=== PATIENT | male | born 1985 | race Caucasian/White ===

== ENCOUNTER 2017-05-19 10:31 | Emergency (ER) | payer OTHER ==
[2017-05-19 10:48] VITALS: BP 99/56
--- NOTE | 2017-05-19 11:59 | UC ---
[facility] Jennifer, scribed for Alec Aquino MD on 05/19/17 at 1133 . Skin Complaint HPI - HPI Summary HPI Summary: The patient is a 31 year old male who presents with redness on the left forearm for the last 1-2 days. The redness is located where he burned himself three days ago while using a kitchen zambrano. Pt additionally complains of bilateral pedal edema that began over one month ago when his dose of medication increased. He had labs done on 05/04/2017 when the edema began. Pt denies fever , chills, and shortness of breath. He is a resident at [facility]. - History of Current Complaint Chief Complaint: UCSkin Time Seen by Provider: 05/19/17 11:10 Stated Complaint: RED AREA ON ARM SWELLING IN KNEES AND FEET Hx Obtained From: Patient Onset/Duration: Sudden Onset, Lasting Days - 1-2 days, Still Present Skin Exposure Onset/Duration: Days Ago - 3 days Timing: Constant Onset Severity: Mild Current Severity: Mild Pain Intensity: 4 Pain Scale Used: 0-10 Numeric Location: Other - Left forearm Character: Exposure to Heat Intermittent - Burned himself on kitchen pain Aggravating Factor(s): Nothing Alleviating Factor(s): Nothing Associated Signs & Symptoms: Negative: Difficulty Breathing, Fever, Chills - Allergy/Home Medications Allergies/Adverse Reactions: Allergies Allergy/AdvReac Type Severity Reaction Status Date / Time shellfish Allergy anaph Uncoded 05/19/17 10:39 Home Medications: Home Medications Ambien Cr 10 mg PO DAILY 05/19/17 [History Confirmed 05/19/17] Divalproex Sodium [Depakote] 1,000 mg PO IN AM AND AT BEDTIME 05/19/17 [History Confirmed 05/19/17] Gabapentin CAP(*) [Neurontin 400 mg CAP(*)] 800 mg PO TID 05/19/17 [History Confirmed 05/19/17] Suboxone 8 mg-2 mg Sl Film 8 mg PO BID 05/19/17 [History Confirmed 05/19/17] Zyprexa 5 MG TAB* 5 mg PO DAILY 05/19/17 [History Confirmed 05/19/17] cloNIDine 0.1 MG PATCH* [Qghnsmwx-Fsv-5 0.1 mg Patch*] 0.1 mg PO BID 05/19/17 [ History Confirmed 05/19/17] Review of Systems Constitutional: Negative - Fever, chills Skin: Other - Redness on left forearm Respiratory: Negative - Shortness of breath Musculoskeletal: Edema - Bilateral All Other Systems Reviewed And Are Negative: Yes PMH/Surg Hx/FS Hx/Imm Hx Previously Healthy: Yes - NEG: HTN - Surgical History Surgical History: Yes Surgery Procedure, Year, and Place: left ear - Family History Known Family History: Negative: Renal Disease - Social History Alcohol Use: None Substance Use Type: None Smoking Status (MU): Former Smoker Physical Exam - Summary Physical Exam Summary: General: well-appearing, no pain distress, no acute distress Skin: warm, color reflects adequate perfusion, dry Head: normal Eyes: EOMI, JAYME ENT: normal Neck: supple, nontender Respiratory: CTA, breath sounds present Cardiovascular: RRR Abdomen: soft, nontender Bowel: present Musculoskeletal: On left forearm there is a 5cm x 1cm second degree burn that has scabbed and there is erythema surrounding it, no pus or drainage. Bilateral pedal edema. strength/ROM intact Neurological: normal, sensory/motor intact, A&O x3 Psychological: affect/mood appropriate Triage Information Reviewed: Yes Vital Signs: Initial Vital Signs Temp 98 F 05/19/17 10:45 Pulse 98 05/19/17 10:45 Resp 16 05/19/17 10:45 BP 99/56 05/19/17 10:45 Pulse Ox 99 05/19/17 10:45 Vital Signs Reviewed: Yes Course/Dx - Course Course Of Treatment: Medications reviewed. Allergies noted. PATIENT SENT BY [facility] FOR LEFT FOREARM REDNESS AFTER A BURN. PATIENT REPORTS EDEMA STARTED WHEN SUBOXONE DOSE INCREASED. GIVEN LASIX AT [facility] AND EDEMA WENT AWAY. NOW THE EDEMA IS BACK. WILL CHECK LABS FOR THE EDEMA AND HAVE HIM F/U WITH HIS DOCTOR AT [facility] FOR BOTH THE EDEMA AND CELLULITIS. - Diagnoses Provider Diagnoses: CELLULITIS LEFT FOREARM. PEDAL EDEMA Discharge - Discharge Plan Condition: Stable Disposition: HOME Prescriptions: Clindamycin Cap(NF) [Clindamycin Cap 300 mg Cap(NF)] 300 mg PO TID #30 cap Clindamycin Cap(NF) [Clindamycin Cap 300 mg Cap(NF)] 300 mg PO TID #30 cap Patient Education Materials: Cellulitis (ED), Leg Edema (ED) Referrals: [facility] [place] [facility] [Outside] No Primary Care Phys,NOPCP [Primary Care Provider] - Additional Instructions: FOLLOW UP WITH YOUR DOCTOR. LABS WERE DRAWN TODAY, HAVE YOUR DOCTOR REVIEW THEM/ DISCUSS FURTHER MANAGEMENT OF YOUR CELLULITIS AND EDEMA WITH YOUR DOCTOR. GET RECHECKED FOR ANY WORSENING OF YOUR CONDITION OR QUESTIONS OR CONCERNS. The documentation as recorded by the [facility] accurately reflects the service I personally performed and the decisions made by me, Alec Aquino MD.
[2017-05-19 16:23] LABS: ABS Basophils 0.1 10^3/ul (0-0.2); ABS Eosinophils 0.4 10^3/ul (0-0.6); ABS Monocytes 0.7 10^3/ul (0-0.8); ABS Neutrophils 2.7 10^3/ul (1.5-7.7); ABS Nucleated RBC 0 10^3/ul; Eosinophil % 6.9 % (0-6); Hematocrit 35 % (42-52); Mean Corpuscular HGB Conc 35 g/dl (31-36); Mean Corpuscular Hemoglobin 32 pg (27-31); Mean Corpuscular Volume 93 fL (80-94); Mean Platelet Volume 10 um3 (7.4-10.4); Nucleated Red Blood Cells % 0.1; Platelet Count 131 10^3/ul (150-450); Red Blood Count 3.75 10^6/ul (4.0-5.4); Red Cell Distribution Width 14 % (10.5-15); White Blood Count 5.8 10^3/ul (3.5-10.8)
[2017-05-19 16:35] LABS: EGFR Non-African American 93.7 (>60)
--- NOTE | 2017-05-20 12:50 | UC ---
- Progress Note Progress Note: PLS CALL PT. LABS WITH SEVERAL LOW LEVEL ABNORMALITIES BUT NOTHING THAT NEEDS ACUTE INTERVENTION AT PRESENT. BE SURE PROVIDER AT [facility] HAS RECEIVED A COPY OF THESE REPORTS FOR COMPARISON TO LABS DRAWN 05/04/17 AND FOR FOLLOW-UP. - RADHAMES CLARK MD
== END 2017-05-19 11:55 | disposition home or self-care (01) ==
LOC: UCEAST 10:31
DX: L03.114 Cellulitis of left upper limb (principal); R60.0 Localized edema; Z87.891 Personal history of nicotine dependence
CPT/HCPCS: 36415; 80053; 83880; 85025; 99212; G0463